=== PATIENT | male | born 1960 | race Caucasian/White ===

== ENCOUNTER 2021-09-06 16:30 | Inpatient (IN) | payer OTHER ==
[~2021-09-06] VITALS: Ht 172.7 cm; Wt 95.4 kg
[~2021-09-06 16:30] MED LIST: AZIT250 PO
[2021-09-06 17:05] LABS: BASOPHILS ABSOLUTE AUTO 0.02 K/mm3 (0.00-0.23); BASOPHILS PERCENT AUTO 0 % (0-2); EOSINOPHILS ABSOLUTE AUTO 0.04 K/mm3 (0.00-0.68); EOSINOPHILS PERCENT AUTO 1 % (0-6); Hematocrit 44.5 % (37.0-53.0); Hemoglobin 14.9 g/dL (13.5-17.5); IMMATURE GRAN ABSOLUTE AUTO 0.03 K/mm3 (0.00-0.10); IMMATURE GRAN PERCENT AUTO 0 % (0-1); LYMPHOCYTES ABSOLUTE AUTO 1.37 K/mm3 (0.84-5.20); LYMPHOCYTES PERCENT AUTO 16 % (21-46); MONOCYTES ABSOLUTE AUTO 0.54 K/mm3 (0.16-1.47); MONOCYTES PERCENT AUTO 6 % (4-13); Mean Corpuscular HGB 30.8 pg (26.0-34.0); Mean Corpuscular HGB Conc 33.5 g/dL (31.5-36.5); Mean Corpuscular Volume 92 fL (80-100); Mean Platelet Volume 9.7 fL (9.1-12.4); NEUTROPHILS ABSOLUTE AUTO 6.59 K/mm3 (1.96-9.15); NEUTROPHILS PERCENT AUTO 77 % (41-73); Platelet Count 164 K/mm3 (150-400); RDW Coefficient Variation 12.6 % (11.7-14.2); RDW Standard Deviation 42.4 fL (35.1-46.3); Red Blood Cell Count 4.83 M/mm3 (4.30-5.90); White Blood Cell Count 8.59 K/mm3 (4.00-11.30)
[2021-09-06 17:18] LABS: Alanine Aminotransfer (ALT/SGP 24 U/L (12-78); Albumin, Blood 3.6 g/dL (3.4-5.0); Albumin/Globulin Ratio 1.2 (0.8-1.8); Alk Phos 53 U/L (50-136); Anion Gap 3 mmol/L (6-16); Aspartate Aminotrans (AST/SGOT 16 U/L (12-37); Blood Urea Nitrogen 15 mg/dL (8-24); Bun/Creatinine Ratio 15.2 (12.0-20.0); CO2, Blood 30 mmol/L (21-32); Calcium, Blood 8.9 mg/dL (8.5-10.1); Chloride, Blood 110 mmol/L (98-108); Creatinine, Blood 0.99 mg/dL (0.60-1.20); Globulin, Blood 2.9 g/dL (2.2-4.0); Glomerular Filtration Rate 88 (60-); Glucose, Blood 124 mg/dL (70-99); Potassium, Blood 4.3 mmol/L (3.5-5.5); Sodium, Blood 143 mmol/L (136-145); Total Protein, Blood 6.5 g/dL (6.4-8.2)
[2021-09-06] MEDS ORDERED: Aspir 8181 MG PO (17:25)
[2021-09-06 21:00] LABS: CHOL/HDL RATIO 5.2; Cholesterol 187 mg/dL (50-200); HDL Cholesterol 36 mg/dL (>39); LDL/HDL RATIO 3.4; Low Density Lipoprotein Chol 121 mg/dL (0-110); Triglycerides 149 mg/dL (30-160); Very Low Density Lipoprot Chol 29 mg/dL (6-32)
--- NOTE | 2021-09-07 05:50 | NUR ---
PT IS A/O, ADMISSION FOR TIA, PT APPEARS TO HAVE NO DEFICITS, EQUAL INDUSTRIAL WASTE TREATMENT TECHNICIAN, EYES ARE UNEVEN WHICH IS FROM PRIOR TRAUMA. PT SAYS THIS IS NORMAL SINCE PRIOR EVENT HAPPENED. PT TO HAVE MRI, SCREENING FORM FAXED.
--- NOTE | 2021-09-07 10:53 | NUR ---
ADVISED DR DIAZ RE THROMBUS PER NET TECHNICAL ARCHITECT . DR RUGGIERO TO READ AND INTERPRET. ALSO, FAMILY READINESS SUPPORT ASSISTANT TRYING TO VERIFY HEART STENTS PRIOR TO MRI. POSS WONT BE UNTIL THURSDAY
[2021-09-07 13:24] LABS: International Normalized Ratio 0.99; Prothrombin Time Results 10.4 Sec (9.7-11.5)
--- NOTE | 2021-09-07 18:57 | NUR ---
PT PLEASANT TODAY. FAMILY DID COME IN TO SEE TODAY. WE ARE STILL PENDING MRI. CLOT IN L VENTRICAL OF HEART DISCOVERED TODAY THROUGH ECHO. PT STARTED ON BOLUS AND HEPARIN DRIP. PRESENTLY INFUSING. WILL VERIFY DRIP AT SHIFT CHANGE. PT STATES FACE/NECK PAIN/TINGLING REDUCED BACK TO NORMAL LEVELS TODAY. NO OTHER CONCNERS THIS TIEM. BED IN LOW POSITION, LUZ L LITE IN REACH, CALLS APPROP
--- NOTE | 2021-09-07 19:24 | NUR ---
[facility] CALLED ME FROM [facility] SOMEONE ASKING FOR INFO ON MED RECORDS FOR MRI INFO ON HIS STENT. [facility] TO GOOGLE [facility] AND SEND A WEB REQUEST FOR INFO.
[2021-09-08 03:18] LABS: International Normalized Ratio 1.04; Prothrombin Time Results 10.9 Sec (9.7-11.5)
--- NOTE | 2021-09-08 04:17 | NUR ---
PATIENT WITH NO NEW COMPLAINS OR CHANGES THIS SHIFT. REMAINS ON HEPARIN AND TITRATED PER PHARMACIST. HEPARIN CURRENTLY AT 20 UNITS/KG/HR WITH NEXT APPT SCHEDULED AT 1030. PATIENT TIA SYMPTOMS RESOLVED AT THIS TIME.
--- NOTE | 2021-09-08 08:00 | NUR ---
PT PLEASANT SOME SYNICAL, SOME BANTERING. A/O X3. TALKATIVE. STATES FEELS BACK TO BASELINE. STATES READY TO GO HOME. HEPARIN DRIPP RUNNING AT 32/HR PER ORDERS. H/R REG, NO MURMUR NOTED. PER TELE NSR AT 96. DENIES C/PN, PRESSURE. ALSO STATES NUMBNESS AND PAIN IS BACK TO NORMAL FOR HIM. CONTINUES ON RT OF NECK TO FACE. LUNGS CLEAR, T/O./ ON R.A. RESP EASY, UNLABORED. BT X4 LAST BM YEST PER PT. VOIDS URINAL. BED IN LOW POSITION, CALL LITE IN REACH. CALLS APPROP
--- NOTE | 2021-09-08 10:47 | NUR ---
STOPPED BY ROOM. STATES STOP HEPARIN. WILL GIVE LOVENOX. RECHECK BP AT NOOON
--- NOTE | 2021-09-08 12:35 | NUR ---
OUTPATIENT MRI ORDERS FAXED TO [facility], [employer]OR BUILDER [employer] NOTIFIED PT TO BE DISCHARGED AND MRI COMPLETED OUTPATIENT.
[2021-09-08] MEDS ORDERED: ATOR40TA PO (12:47)
[2021-09-08] MEDS ORDERED: CARV6.25 PO (12:48)
[2021-09-08] MEDS ORDERED: CLOP75 PO (12:48)
[2021-09-08] MEDS ORDERED: ENOX100I SC (12:48)
[2021-09-08] MEDS ORDERED: LISI5 PO (12:49)
[2021-09-08] MEDS ORDERED: SPIR25 PO (12:49)
[2021-09-08] MEDS ORDERED: Coumadin2 MG PO (12:50)
--- NOTE | 2021-09-08 14:08 | NUR ---
DISCHARGE REVIEWED WITH PT . HE VERBALIZED UNDERSTANDING MEDS AND INST. VERBALIZED UNDERSTANDING NEED FOR INR CHECKS. ALSO KEEPING LOVENOX INJECTIONS PER DR ORDERS. IV PULLED INTACT. TELE REMOVED AND RETURNED. PT WHEELED TO DOOR AT 1408
== END 2021-09-08 14:32 | disposition home or self-care (01) | DRG 69 ==
LOC: ER 16:30 → MEDS 16:31
PROVIDERS: Emergency Medicine; ADMIT Internal Medicine
DX: G45.9 Transient cerebral ischemic attack, unspecified (principal); I50.22 Chronic systolic (congestive) heart failure; I25.10 Atherosclerotic heart disease of native coronary artery without angina pectoris; I25.2 Old myocardial infarction; E11.9 Type 2 diabetes mellitus without complications; Z79.899 Other long term (current) drug therapy; R29.810 Facial weakness; I27.20 Pulmonary hypertension, unspecified
CPT/HCPCS: 36415; 70450; 70496; 70498; 71045; 80053; 80061; 82947; 83036; 85025; 85610; 85730; 92523; 93005; 93010; 93306; 96374; 96376; 97161; 97530; 99285-25; A9270; G0378; J1644; J1650; Q9967

== ENCOUNTER 2022-08-19 09:37 | Day surgery (SDC) | payer OTHER ==
[~2022-08-19] VITALS: Ht 172.7 cm; Wt 93.0 kg
[~2022-08-19 09:37] MED LIST changes: +ATOR40TA PO; +Aspir 8181 MG PO; +CARV6.25 PO; +CLOP75 PO; +Coumadin2 MG PO; +ENOX100I SC; +LISI5 PO; +SPIR25 PO
[2022-08-19] MEDS ORDERED: METO100ER (09:51)
--- NOTE | 2022-08-19 11:01 | NUR ---
08/19/22 1101 LUCIUS MARCANO PT WAS TOLD THAT H NEEDED A RIDE TO LEAVE AFTER HIS PROCEDURE AND HIS RIDE WAS PLANNING TO PICK HIM UP AT [phone] TODAY. HE WANTS TO LEAVE AND WALK TO STORE TO GET FOOD TO EAT. DR NGUYEN DISCUSSED NOT BEING ABLE TO HOLD HIM AGAINST HIS WILL IF HE WANTS TO LEAVE AND IS ABLE TO DRESS AND WALK SAFELY AND FEELS COMPLETELY AWAKE EVEN IF IT IS AGAINST MEDICAL ADVISE.
[2022-08-19 11:58] VITALS: BP 100/68
--- NOTE | 2022-08-19 12:13 | NUR ---
08/19/22 1213 LUCIUS MARCANO PT REFUSED TO WAIT IN STEP DOWN UNIT TO WAIT FOR HIS RIDE. RN EXPLAINED THE RISKS OF LEAVING AFTER HAVING PROPOFOL SEDATION. PT TOLD THAT IT WAS ILLEGAL TO DRIVE HIMSELF FOR 24. PT DISCUSSED W/ DR NGUYEN WHO TOLD PT WE COULD NOT KEEP PT AGAINST MEDICAL ADVISE. PT SAID HE WS WALKING TO STORE TO WAIT FOR HIS RIDE TO PICK HIM UP AFTE HE GOT OFF WORK. PT SIGNED AMA FORM.
== END 2022-08-19 11:45 | disposition home or self-care (01) ==
LOC: ORSCSDS 09:37
PROVIDERS: Surgery
PROC: 0DJD8ZZ Inspection of Lower Intestinal Tract, Via Natural or Artificial Opening Endoscopic (ICD-10-PCS; principal; 2022-08-19 10:45)
DX: K62.5 Hemorrhage of anus and rectum (principal); Z86.010 Personal history of colon polyps; K64.4 Residual hemorrhoidal skin tags; Z86.73 Personal history of transient ischemic attack (TIA), and cerebral infarction without residual deficits; I25.10 Atherosclerotic heart disease of native coronary artery without angina pectoris; I50.9 Heart failure, unspecified; Z86.718 Personal history of other venous thrombosis and embolism; I21.9 Acute myocardial infarction, unspecified; Z79.01 Long term (current) use of anticoagulants; Z79.899 Other long term (current) drug therapy
CPT/HCPCS: J2704; J7120

== ENCOUNTER 2023-09-09 15:09 | Observation (INO) | payer OTHER ==
[~2023-09-09] VITALS: Ht 170.2 cm; Wt 90.0 kg
[~2023-09-09 15:09] MED LIST changes: +METO100ER
[2023-09-09] MEDS ORDERED: Ondansetron HCl 2 MG / ML 2ML Vial IV ONE (15:25)
[2023-09-09] MEDS ORDERED: Morphine Sulfate 4 MG/1 ML Injection IV ONE (15:25)
[2023-09-09 15:40] LABS: BASOPHILS ABSOLUTE AUTO 0.03 K/mm3 (0.00-0.23); BASOPHILS PERCENT AUTO 0 % (0-2); EOSINOPHILS ABSOLUTE AUTO 0.04 K/mm3 (0.00-0.68); EOSINOPHILS PERCENT AUTO 0 % (0-6); Hematocrit 49.3 % (37.0-53.0); Hemoglobin 16.6 g/dL (13.5-17.5); IMMATURE GRAN ABSOLUTE AUTO 0.03 K/mm3 (0.00-0.10); IMMATURE GRAN PERCENT AUTO 0 % (0-1); LYMPHOCYTES ABSOLUTE AUTO 2.59 K/mm3 (0.84-5.20); LYMPHOCYTES PERCENT AUTO 22 % (21-46); MONOCYTES ABSOLUTE AUTO 0.91 K/mm3 (0.16-1.47); MONOCYTES PERCENT AUTO 8 % (4-13); Mean Corpuscular HGB 31.4 pg (26.0-34.0); Mean Corpuscular HGB Conc 33.7 g/dL (31.5-36.5); Mean Corpuscular Volume 93 fL (80-100); Mean Platelet Volume 9.7 fL (9.1-12.4); NEUTROPHILS ABSOLUTE AUTO 8.02 K/mm3 (1.96-9.15); NEUTROPHILS PERCENT AUTO 69 % (41-73); Platelet Count 183 K/mm3 (150-400); RDW Coefficient Variation 12.4 % (11.7-14.2); RDW Standard Deviation 42.8 fL (35.1-46.3); Red Blood Cell Count 5.29 M/mm3 (4.30-5.90); White Blood Cell Count 11.62 K/mm3 (4.00-11.30)
[2023-09-09 16:12] LABS: Albumin, Blood 4.1 g/dL (3.4-5.0); Albumin/Globulin Ratio 1.3 (0.8-1.8); Bilirubin, Total 1.2 mg/dL (0.1-1.0); Bun/Creatinine Ratio 13.1 (12.0-20.0); Calcium, Blood 9.4 mg/dL (8.5-10.1); Creatinine, Blood 1.07 mg/dL (0.60-1.20); Globulin, Blood 3.2 g/dL (2.2-4.0); Total Protein, Blood 7.3 g/dL (6.4-8.2)
[2023-09-09 17:54] LABS: International Normalized Ratio 1.94; Prothrombin Time Results 19.8 Sec (9.7-11.5)
[2023-09-09] MEDS ORDERED: Morphine Sulfate 4 MG/1 ML Injection IV PRN (19:55)
[2023-09-09] MEDS ORDERED: Acetaminophen 325 MG TABLET PO PRN (19:55)
[2023-09-09] MEDS ORDERED: Ondansetron HCl 2 MG / ML 2ML Vial IV PRN (20:00)
[2023-09-09 20:28] LABS: Anti-Xa UFH, PHA Monitoring <0.10 IU/mL
[2023-09-09] MEDS ORDERED: Dose Adjust by Pharmacy XX STA (20:49)
[2023-09-09] MEDS ORDERED: Heparin Sodium,Porcine/0.5 NS 500 ML IV SCH (20:50)
[2023-09-09] MEDS ORDERED: METO25 PO (20:54)
[2023-09-09] MEDS ORDERED: ENTRESTO 24 MG1 EACH PO (20:56)
[2023-09-09] MEDS ORDERED: FARXIGA10 MG PO (20:57)
[2023-09-09] MEDS ORDERED: Nitroglycerin 1 INCH/GM PKT TOP ONE (21:00)
[2023-09-09 21:16] VITALS: BP 110/76
[2023-09-09 23:08] VITALS: BP 95/61
[2023-09-10 03:13] VITALS: BP 97/61
[2023-09-10 03:43] LABS: Hematocrit 42.7 % (37.0-53.0); Hemoglobin 14.4 g/dL (13.5-17.5); Mean Corpuscular HGB 32.1 pg (26.0-34.0); Mean Corpuscular HGB Conc 33.7 g/dL (31.5-36.5); Mean Corpuscular Volume 95 fL (80-100); Mean Platelet Volume 10.1 fL (9.1-12.4); Platelet Count 153 K/mm3 (150-400); RDW Coefficient Variation 12.6 % (11.7-14.2); RDW Standard Deviation 43.8 fL (35.1-46.3); Red Blood Cell Count 4.48 M/mm3 (4.30-5.90); White Blood Cell Count 8.48 K/mm3 (4.00-11.30)
[2023-09-10 03:58] LABS: Anti-Xa UFH, PHA Monitoring 0.47 IU/mL; International Normalized Ratio 1.67; Prothrombin Time Results 17.2 Sec (9.7-11.5)
[2023-09-10 03:59] LABS: Bun/Creatinine Ratio 15.7 (12.0-20.0); Calcium, Blood 8.3 mg/dL (8.5-10.1); Creatinine, Blood 0.89 mg/dL (0.60-1.20); Potassium, Blood 3.9 mmol/L (3.5-5.5)
[2023-09-10] MEDS ORDERED: Dose Adjust by Pharmacy XX STA ×2 (04:56→10:23)
[2023-09-10] MEDS ORDERED: NS 1,000 ML IV SCH (05:00)
--- NOTE | 2023-09-10 06:34 | NUR ---
SHIFT SUMMARY PATIENT ALERT AND ORIENTED x4 T/O THE NIGHT. ELEVATED TROP, TRENDING UP. DENIES CHEST PAIN/PRESSURE AT THIS TIME. SOME LOW BP, BUT MAP > 65. HEPARIN GTT INFUSING PER PHARMACY DOSING. PATIENT HAS BEEN NPO SINCE [place]. ON RA SPO2 > 90%. NO ACUTE EVENTS SINCE ARRIVAL TO PCU THIS SHIFT.
[2023-09-10] MEDS ORDERED: Heparin Sodium 1000 Units/ML 10ML MDV ONE ×2 (07:40→07:41)
[2023-09-10] MEDS ORDERED: NS 1,000 ML IV ONE ×2 (07:40→10:49)
[2023-09-10] MEDS ORDERED: Verapamil HCL 2.5 MG/ML 2ML Injection ONE (07:40)
[2023-09-10] MEDS ORDERED: NS 250 ML IV ONE (07:41)
[2023-09-10] MEDS ORDERED: Nitroglycerin 2 MG/20 ML BTL ONE (07:51)
[2023-09-10] MEDS ORDERED: Carvedilol 6.25 MG Tab PO SCH (08:00)
[2023-09-10 08:12] VITALS: BP 96/66
[2023-09-10 08:35] LABS: CHOL/HDL RATIO 2.4; Cholesterol 105 mg/dL (50-200); HDL Cholesterol 43 mg/dL (>39); Low Density Lipoprotein Chol 44 mg/dL (0-110); Triglycerides 88 mg/dL (30-160); Very Low Density Lipoprot Chol 17 mg/dL (6-32)
[2023-09-10] MEDS ORDERED: Aspirin 81 MG Chew PO SCH (09:00)
[2023-09-10] MEDS ORDERED: Clopidogrel Bisulfate 75 MG Tab PO SCH (09:00)
[2023-09-10] MEDS ORDERED: Atorvastatin 40 MG Tab PO SCH (09:00)
[2023-09-10] MEDS ORDERED: Midazolam HCl 1MG / ML 2ML Vial ONE (10:48)
[2023-09-10] MEDS ORDERED: FentaNYL Citrate 50 MCG/ML 2 ML Injection ONE (10:48)
[2023-09-10 12:15] VITALS: BP 92/66
[2023-09-10 12:30] VITALS: BP 108/78
[2023-09-10 12:45] VITALS: BP 109/80
--- NOTE | 2023-09-10 12:52 | NUR ---
REASSESSMENT PT WENT FOR HIS ANGIO THIS AM AND IS BACK WITH A TR BAND ON R ULNAR SITE. UPON RETURN FROM SOFTWARE FIRMWARE ENGINEER, R HAND WAS PURPLE, COOL TO TOUCH WITH CAP REFILL >3 SECONDS. 2CC REMOVED FROM TR BAND AND R HAND IS NOW PINKER AND CAP REFILL <3 SECONDS. ACCESS SITE IS C/D/I, SOFT. PT DENIES CHEST PAIN. LUNGS CLEAR, RA. DIET ORDERED AND PT EATING LUNCH.
[2023-09-10] MEDS ORDERED: Enoxaparin 150 MG/ML 1ML SYR SC SCH (16:00)
[2023-09-10] MEDS ORDERED: Warfarin Sodium 5 MG Tab PO ONE (16:08)
[2023-09-10] MEDS ORDERED: ASPI81CH PO (16:43)
[2023-09-10] MEDS ORDERED: METO25ER PO (16:44)
[2023-09-10] MEDS ORDERED: ENOX100I SC (16:45)
--- NOTE | 2023-09-10 17:26 | NUR ---
DISCHARGE PT'S TR BAND DEFLATED WITHOUT COMPLICATIONS. PT GIVEN INSTRUCTIONS ON ACTIVITY INSTRUCTIONS AND ADVISED TO CONTINUE WEARING THE ARM BOARD A REMINDER TO NOT USE THAT WRIST. DR. SQUIRES ROUNDED ON PT AND DECIDED TO DISCHARGE PT. PT WAS IRRITATED AFTER THE CONVERSATION THAT HIS COUMADIN WASN'T STARTED YESTERDAY SO HE WOULDN'T HAVE TO TAKE LOVENOX SHOTS. EDUCATED GIVEN ON WHY COUMADIN WASN'T STARTED LAST NIGHT AND THAT HE LIKELY WOULD'VE STILL NEEDED LOVENOX SHOTS. PT GIVEN EDUCATION ON HOW TO GIVE LOVENOX SHOTS AND THAT HE WILL LIKELY NEED TO PURGE SOME MEDICINE OUT OF THE [facility] TO GET THE CORRECT DOSE. PT GIVEN FIRST DOSE OF LOVENOX AND COUMADIN. PT GIVEN INSTRUCTIONS NOT TO TAKE COUMADIN TOMORROW UNTIL HE HEARS FROM COUMADIN CLINIC PER FANNY PACE. PT GIVEN DISCHARGE INSTRUCTIONS ABOUT FOLLOW UP APPOINTMENTS. PT DRESSED SELF AND ONCE AGAIN ASKED IF HE HAD TO WEAR THE ARM BOARD. ACTIVITY LIMITATIONS FOR WRIST REVIEWED AND STRONGLY ADVISED WEARING THE ARMBOARD A REMINDER TO NOT USE IT, BUT PT DECIDED NOT TO WEAR IT. PT DISCHARGED VIA PRIVATE VEHICLE WITH HIS BROTHER.
== END 2023-09-10 17:30 | disposition home or self-care (01) ==
LOC: ER 15:09 → PCU 15:10 → ER 19:53 → PCU 20:36
PROVIDERS: Emergency Medicine; Nurse Practitioner Acute Care; Student in an Organized Health Care Education/Training Program; ADMIT Student in an Organized Health Care Education/Training Program
DX: I21.4 Non-ST elevation (NSTEMI) myocardial infarction (principal); I24.9 Acute ischemic heart disease, unspecified; I25.5 Ischemic cardiomyopathy; I25.10 Atherosclerotic heart disease of native coronary artery without angina pectoris; Z95.5 Presence of coronary angioplasty implant and graft; I50.20 Unspecified systolic (congestive) heart failure; Z86.73 Personal history of transient ischemic attack (TIA), and cerebral infarction without residual deficits; Z79.01 Long term (current) use of anticoagulants; Z79.899 Other long term (current) drug therapy
CPT/HCPCS: 36415; 71046; 71260; 76937; 80048; 80053; 80061; 83036; 84443; 84484; 85025; 85027; 85520; 85610; 85730; 93005; 93010; 93454; 96372; 96374; 96375; 99152; 99153; 99285-25; A9270; C1769; C1894; C8929; G0378; J1644; J1650; J2250; J2270; J2405; J3010; J7030; J7050; Q9957; Q9967

== ENCOUNTER 2024-05-21 14:56 | Inpatient (IN) | payer OTHER ==
[~2024-05-21] VITALS: Ht 177.8 cm; Wt 87.1 kg
[~2024-05-21 14:56] MED LIST changes: +ASPI81CH PO; +ENTRESTO 24 MG1 EACH PO; +FARXIGA10 MG PO; +METO25 PO; +METO25ER PO
[2024-05-21 15:14] LABS: BASOPHILS ABSOLUTE AUTO 0.04 K/mm3 (0.00-0.23); BASOPHILS PERCENT AUTO 0 % (0-2); EOSINOPHILS ABSOLUTE AUTO 0.08 K/mm3 (0.00-0.68); EOSINOPHILS PERCENT AUTO 1 % (0-6); Hemoglobin 17.3 g/dL (13.5-17.5); IMMATURE GRAN ABSOLUTE AUTO 0.04 K/mm3 (0.00-0.10); IMMATURE GRAN PERCENT AUTO 0 % (0-1); LYMPHOCYTES ABSOLUTE AUTO 3.35 K/mm3 (0.84-5.20); LYMPHOCYTES PERCENT AUTO 32 % (21-46); MONOCYTES ABSOLUTE AUTO 0.89 K/mm3 (0.16-1.47); MONOCYTES PERCENT AUTO 8 % (4-13); Mean Corpuscular HGB 31.9 pg (26.0-34.0); Mean Corpuscular HGB Conc 34.6 g/dL (31.5-36.5); Mean Corpuscular Volume 92 fL (80-100); Mean Platelet Volume 9.5 fL (9.1-12.4); NEUTROPHILS ABSOLUTE AUTO 6.14 K/mm3 (1.96-9.15); NEUTROPHILS PERCENT AUTO 58 % (41-73); Platelet Count 201 K/mm3 (150-400); RDW Coefficient Variation 12.5 % (11.7-14.2); RDW Standard Deviation 42.2 fL (35.1-46.3); Red Blood Cell Count 5.42 M/mm3 (4.30-5.90); White Blood Cell Count 10.54 K/mm3 (4.00-11.30)
[2024-05-21] MEDS ORDERED: Morphine Sulfate 4 MG/1 ML Injection ONE (15:18)
[2024-05-21] MEDS ORDERED: Ondansetron HCl 2 MG / ML 2ML Vial ONE (15:18)
[2024-05-21 15:19] LABS: Calcium, Ionized (POC) 0.91 mmol/L (1.10-1.46); Chloride (POC) 108 mmol/L (98-108); Creatinine (POC) 1.1 mg/dL (0.8-1.3); Glucose (ISTAT POC) 135 mg/dL (70-99); Potassium (POC) 5.5 mmol/L (3.5-5.5); Sodium (POC) 136 mmol/L (135-148); Total CO2 (POC) 21 mmol/L (21-32)
[2024-05-21] MEDS ORDERED: Morphine Sulfate 4 MG/1 ML Injection IV ONE (15:20)
[2024-05-21] MEDS ORDERED: Ondansetron HCl 2 MG / ML 2ML Vial IV ONE (15:20)
[2024-05-21] MEDS ORDERED: Nitroglycerin 1 INCH/GM PKT TOP ONE (15:20)
[2024-05-21] MEDS ORDERED: Aspirin 81 MG Chew PO ONE (15:20)
[2024-05-21] MEDS ORDERED: NS 1,000 ML IV ONE ×2 (15:24→15:26)
[2024-05-21] MEDS ORDERED: NS 0 ML IV ONE (15:26)
[2024-05-21] MEDS ORDERED: Heparin Sodium 1000 Units/ML 10ML MDV ONE (15:26)
[2024-05-21] MEDS ORDERED: Verapamil HCL 2.5 MG/ML 2ML Injection ONE (15:26)
[2024-05-21] MEDS ORDERED: Isosorbide Mono30 MG PO (15:29)
[2024-05-21 15:35] LABS: Albumin, Blood 4.3 g/dL (3.4-5.0); Albumin/Globulin Ratio 1.4 (0.8-1.8); Bilirubin, Total 1.6 mg/dL (0.1-1.0); Bun/Creatinine Ratio 16.3 (12.0-20.0); Calcium, Blood 9.3 mg/dL (8.5-10.1); Creatinine, Blood 1.04 mg/dL (0.60-1.20); Potassium, Blood 3.9 mmol/L (3.5-5.5); Total Protein, Blood 7.3 g/dL (6.4-8.2)
[2024-05-21 15:48] LABS: International Normalized Ratio 2.41; Prothrombin Time Results 24.2 Sec (9.7-11.5)
[2024-05-21] MEDS ORDERED: HYDROmorphone HCl/Pf 1MG SYR IV ONE ×2 (15:50→16:00)
[2024-05-21 16:24] LABS: Base Excess Venous -1.6 mmol/L; Bicarbonate Venous 22.1 mmol/L (24.0-30.0)
[2024-05-21 16:25] LABS: PCO2 Venous 42.1 mmHg (38-42); pH Blood Venous 7.36 (7.34-7.37)
[2024-05-21] MEDS ORDERED: LORazepam 2 MG/ML 1ML Injection IV ONE (16:35)
[2024-05-21] MEDS ORDERED: Morphine Sulfate 4 MG/1 ML Injection IV PRN (18:05)
[2024-05-21] MEDS ORDERED: Nitroglycerin 0.4 MG SUBL SL PRN (18:05)
[2024-05-21] MEDS ORDERED: Magnesium Hydroxide Conc 10 ML UDC PO PRN (18:05)
[2024-05-21] MEDS ORDERED: FLU VACC TS2024-25(6MOS UP)/PF 45 MCG/0.5 ML SYRINGE IM ONE (20:00)
[2024-05-21] MEDS ORDERED: Sacubitril/Valsartan 24 MG-26 MG Tab PO SCH (21:00)
--- NOTE | 2024-05-21 21:51 | NUR ---
MD NOTIFED PT HAD 8 BEAT RUN OF V-TACH, PT ASYMTOMATIC. NOTIFED
--- NOTE | 2024-05-21 22:19 | NUR ---
ASSUMPTION OF CARE REPORT RECIVED FROM ER NURSE URIEL @ 6289, PT ARRIVED TO PCU 13 @ APPROX 2205, PT SELF TRANSFERED TO PCU BED, VSS, PT HOLDING APPROPRATE CONVERSATION, OBEYS COMMANDS, PT REPORTING CHEST PAIN THAT IS IMPROVED SINCE ADMISSION.
[2024-05-21 23:32] VITALS: BP 122/76
[2024-05-22] VITALS (10 sets, daily range): BP systolic 95–104; BP diastolic 65–78
--- NOTE | 2024-05-22 00:26 | NUR ---
NOTIFED DR. HUDSON NOTIF[place] [id number] [place] 363 @ 1217 [address] WHITAKER [place]IF[place] [id number] [place] 363 @ ARRPOX 1220, STATED HE WILL BE AT BEDSIDE IN APPROX 10-15 MINTUES. NO NEW ORDERS AT THIS TIME
--- NOTE | 2024-05-22 01:01 | NUR ---
TO BEDSIDE CAME TO BEDSIDE
[2024-05-22] MEDS ORDERED: Clopidogrel Bisulfate 300 MG Cap PO ONE (01:05)
--- NOTE | 2024-05-22 01:48 | NUR ---
MD MCKEONIFECaren CALLED DR. SCALES WITH 13S RUN OF V-TACH, PT VSS, PT ALERT AND ANSWERING QUESTIONS APPROPRIATLY AT THIS TIME. CHEST PAIN REMAINS THE SAME PRIOR ASSESSEMENT
[2024-05-22 02:07] LABS: International Normalized Ratio 2.09
[2024-05-22 02:12] LABS: Prothrombin Time Results 21.2 Sec (9.7-11.5)
[2024-05-22] MEDS ORDERED: Dose Adjust by Pharmacy XX STA ×2 (02:50→10:07)
[2024-05-22] MEDS ORDERED: Heparin Sodium,Porcine/0.5 NS 500 ML IV SCH (02:55)
[2024-05-22 03:29] LABS: Anti-Xa UFH, PHA Monitoring <0.10 IU/mL
--- NOTE | 2024-05-22 05:03 | NUR ---
CONSULTED WITH DR. HUDSON PER DR. WHITAKER REQUEST, PLAN OF CARE ONGOING, NO NEW ORDERS AT THIS TIME.
[2024-05-22 05:49] LABS: LDL/HDL RATIO 1.1
[2024-05-22 05:50] LABS: Alanine Aminotransfer (ALT/SGP 62 U/L (12-78); Albumin, Blood 3.7 g/dL (3.4-5.0); Albumin/Globulin Ratio 1.3 (0.8-1.8); Alk Phos 59 U/L (50-136); Anion Gap 10 mmol/L (3-11); Aspartate Aminotrans (AST/SGOT 283 U/L (12-37); Bilirubin, Total 1.3 mg/dL (0.1-1.0); Blood Urea Nitrogen 14 mg/dL (8-24); Bun/Creatinine Ratio 19.3 (12.0-20.0); CHOL/HDL RATIO 2.4; CO2, Blood 24 mmol/L (21-32); Calcium, Blood 8.9 mg/dL (8.5-10.1); Chloride, Blood 109 mmol/L (98-108); Cholesterol 123 mg/dL (50-200); Creatinine, Blood 0.73 mg/dL (0.60-1.20); Globulin, Blood 2.9 g/dL (2.2-4.0); Glomerular Filtration Rate 103 (60-); Glucose, Blood 117 mg/dL (70-99); HDL Cholesterol 52 mg/dL (>39); Low Density Lipoprotein Chol 59 mg/dL (0-110); Potassium, Blood 4.2 mmol/L (3.5-5.5); Sodium, Blood 139 mmol/L (136-145); Total Protein, Blood 6.6 g/dL (6.4-8.2); Triglycerides 60 mg/dL (30-160); Very Low Density Lipoprot Chol 12 mg/dL (6-32)
--- NOTE | 2024-05-22 06:13 | NUR ---
SHIFT SUMMARY PT A&O X4, OBEYS COMMANDS, MOVING ALL EXTREMITIES WITH PURPOSE, HOLDING APPROPRIATE CONVERSATION, PT IND IN ROOM EDUCATED TO CALL BEFORE AMBULATING. CONTINUOUS SPO2. SPO2 GREATER THAN 90% ON RA, PT DENIES FEELINGS OF SOB, NO SIGNS OF RESPIRATORY DISTRESS NOTED. CONTINUOUS TELE MONITORING, SINUS RHYTM 80-90 S/ RUNS OF ASYMPTOMATIC V-TACH (MD AWARE), BP STABLE WITH MAP GREATER THAN 65, PT REPORTS CHEST PAIN T/O THIS SHIFT BUT DENIES IT FEELING ANY WORSE OR DIFFERENT THAN WHEN HE WAS ADMITTED, STRONG PULSES T/O. BOWEL TONES PRESENT IN ALL 4Q, PT DENIES FEELINGS OF CONSTIPATION, DENIES FEELINGS OF NAUSEA, PT NPO SINCE MIDNIGHT FOR PROCEDURE TODAY 05/22/2024. PT VOIDING IN BRP, URINE YELLOW IN COLOR. BED LOWEST POSITION, CALL LIGHT IN REACH, AWAITING TO GIVE REPORT TO ONCOMING RN.
[2024-05-22] MEDS ORDERED: Aspirin 325 MG Tab PO SCH (09:00)
[2024-05-22] MEDS ORDERED: Atorvastatin 40 MG Tab PO SCH (09:00)
[2024-05-22] MEDS ORDERED: Isosorbide Mononitrate 30 MG TABCR PO SCH (09:00)
[2024-05-22] MEDS ORDERED: Metoprolol Succinate 25 MG TABCR PO SCH (09:00)
[2024-05-22] MEDS ORDERED: Spironolactone 25 MG Tab PO SCH (09:00)
[2024-05-22] MEDS ORDERED: Empagliflozin 25 MG TAB PO SCH (09:00)
[2024-05-22] MEDS ORDERED: Aspirin 81 MG TabEC PO SCH (09:00)
[2024-05-22 09:18] LABS: BASOPHILS ABSOLUTE AUTO 0.01 K/mm3 (0.00-0.23); BASOPHILS PERCENT AUTO 0 % (0-2); EOSINOPHILS PERCENT AUTO 0 % (0-6); Hematocrit 48.9 % (37.0-53.0); Hemoglobin 16.7 g/dL (13.5-17.5); IMMATURE GRAN ABSOLUTE AUTO 0.05 K/mm3 (0.00-0.10); IMMATURE GRAN PERCENT AUTO 0 % (0-1); LYMPHOCYTES ABSOLUTE AUTO 1.29 K/mm3 (0.84-5.20); LYMPHOCYTES PERCENT AUTO 9 % (21-46); MONOCYTES ABSOLUTE AUTO 1.23 K/mm3 (0.16-1.47); MONOCYTES PERCENT AUTO 8 % (4-13); Mean Corpuscular HGB 31.6 pg (26.0-34.0); Mean Corpuscular HGB Conc 34.2 g/dL (31.5-36.5); Mean Corpuscular Volume 92 fL (80-100); Mean Platelet Volume 9.7 fL (9.1-12.4); NEUTROPHILS ABSOLUTE AUTO 12.11 K/mm3 (1.96-9.15); NEUTROPHILS PERCENT AUTO 82 % (41-73); Platelet Count 164 K/mm3 (150-400); RDW Coefficient Variation 12.7 % (11.7-14.2); Red Blood Cell Count 5.29 M/mm3 (4.30-5.90); White Blood Cell Count 14.69 K/mm3 (4.00-11.30)
[2024-05-22] MEDS ORDERED: Clarify Drug Order XX ONE (15:30)
[2024-05-22] MEDS ORDERED: Warfarin Sodium 4 MG Tab PO ONE (16:00)
--- NOTE | 2024-05-22 18:38 | NUR ---
SHIFT SUMMARY PATIENT AOX4 CALM AND COOPERATIVE. COMPLAINS OF STABBING CHEST PAIN THAT HAS IMPROVED SINCE ADMISSION AND IS NOW A 5/10. HE IS ON HEPARIN GTT. CARDIOLOGY ORDERED THE PATIENT BLOOD LETTING DUE TO ELEVATED HEMOGLOBIN. THE PATIENT AMBULATORY IDEPENDENT IN ROOM. ABLE TO MOVE ALL EXTREMETIES. 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 PATIENT ON THE HEART MONITOR RUNNING SINUS RHYTHM WITH EPISODES OF SINUS TACHYCARDIA. HIS BLOOD PRESSURE SYSTOLIC IS IN THE 90'S WITH HIS MAP GREATER THAN 65. THE CONINUOUS PULSE OX IS GREATER THAN 90 ON ROOM AIR WITH NO SOB. LUNGS ARE CLEAR AND BOWEL SOUNDS ARE PRESENT. HE IS ON A CARDIAC DIET TOLERATING HIS FOOD.
--- NOTE | 2024-05-22 20:42 | NUR ---
ASSUMPTION OF CARE ASSUMED CARE OF PATIENT AT 1900. BEDSIDE SHIFT REPORT RECEIVED FROM TOÑA RN. PT RESTING IN BED, ALERT AND ORIENTED X4. PT ANSWERS QUESTIONS, FOLLOWS DIRECITON WHEN PROMPTED AND IS ABLE TO MAKE HIS NEEDS KNOWN. PT MOVES EXTREMITIES EQUALLY BILATERALLY, AMBULATES IN THE ROOM INDEPENDENTLY. HR 100-110'S SINUS, SBP 90S. PT STATES THAT HE CHRONICALLY HAS 4/10 PAIN UNCHANGED FROM HIS BASELINE. ENTRESTO HELD PER DR. CARR THIS EVENING. PT ON RA, OXYGEN SATURATION >95%. ABDOMEN SOFT, BOWEL TONES ACTIVE THROUGHOUT. PT AMBULATES IN THE ROOM INDEPENDENTLY. POWERGLIDE IN PLACE TO CAROL INFUSING HEPARIN AT 15UNITS/KG/HR. BED IN LOWEST POSITION, CALL LIGHT WITHIN REACH, CARE CONTINUES.
[2024-05-23 03:21] VITALS: BP 100/70
[2024-05-23 03:36] LABS: Hematocrit 44.1 % (37.0-53.0); Hemoglobin 15.1 g/dL (13.5-17.5); Mean Corpuscular HGB 31.8 pg (26.0-34.0); Mean Corpuscular HGB Conc 34.2 g/dL (31.5-36.5); Mean Corpuscular Volume 93 fL (80-100); Mean Platelet Volume 9.2 fL (9.1-12.4); Platelet Count 140 K/mm3 (150-400); RDW Coefficient Variation 12.4 % (11.7-14.2); RDW Standard Deviation 42.7 fL (35.1-46.3); Red Blood Cell Count 4.75 M/mm3 (4.30-5.90)
[2024-05-23 03:50] LABS: Anti-Xa UFH, PHA Monitoring 0.59 IU/mL; Calcium, Blood 8.2 mg/dL (8.5-10.1); Creatinine, Blood 0.81 mg/dL (0.60-1.20); International Normalized Ratio 1.84; Potassium, Blood 4.2 mmol/L (3.5-5.5); Prothrombin Time Results 18.8 Sec (9.7-11.5)
--- NOTE | 2024-05-23 04:54 | NUR ---
SHIFT SUMMARY NO ACUTE CHANGES THIS SHIFT. PT CONTINUES TO REST IN BED, SLEEPING BUT AROUSABLE. PT ANSWERS QUESTIONS APPROPRIATELY, FOLLOWS DIRECTION WHEN PROMPTED AND IS ABLE TO MAKE HIS NEEDS KNOWN. PT MOVES EXTREMITIES EQUALLY BILATERALLY. HR 100-110S SINUS, MAP >65, PT CONTINUES TO HAVE BASELINE 4/10 PAIN THAT IS UNCHANGED FROM HIS NORMAL. PT ON RA, OXYGEN SATURATION >92% ON SPOT CHECK, ABDOMEN SOFT, BOWEL TONES ACTIVE THROUGHOUT. PT AMBULATES IN THE ROOM INDEPENDENTLY. POWERGLIDE IN PLACE TO CAROL INFUSING HEPARIN AT 15UNITS/KG/HR. BED IN LOWEST POSITON, CALL LIGHT WITHIN REACH, CARE CONTINUES.
--- NOTE | 2024-05-23 04:58 | NUR ---
PT UPDATE ORDER TO DC HEPARIN 24 HOURS AFTER INITIATION WHICH WOULD HAVE JANET AROUND 0300. COAG LABS DRAWN THIS AM, PER PHARMACIST, PT INR IS BELOW THERAPEUTIC RANGE. CALL PLACED TO DR. HUDSON REGARDING THIS INFORMATION. ORDER RECEIVED TO CONTINUE HEPARIN DRIP UNTIL INR IS ABOVE 2, PHARMACIST AWARE, ORDER PLACED TO RECHECK INR AT 1500. CARE CONTINUES.
[2024-05-23] MEDS ORDERED: Clarify Drug Order XX ONE (07:25)
--- NOTE | 2024-05-23 07:49 | NUR ---
THIS RN ASSUMED CARE OF PT AT 0700. PT IS ALERT AND ORIENTED X4, CALLS APPROPRIATELY. PT HEART RATE IN THE 100s, BLOOD PRESSURE LOWER 86/66 MAP IS 74, PT DENIES CHEST PAIN UPON ASSESSMENT. PT IS ON ROOM AIR SATTING >92%, PT DENIES SHORTNESS OF BREATHE. PT IS ON HEPARIN AT 15 UNITS/KG/HR, WILL RECHECK WARFARIN LEVEL, IF THERAPEUTIC WILL TURN OFF HEPARIN PER PROVIDER. NO OTHER INTERVENTIONS AT THIS TIME. PLAN OF CARE CONTINUED.
[2024-05-23 08:00] VITALS: BP 88/58
[2024-05-23 12:00] VITALS: BP 85/55
[2024-05-23 15:49] LABS: International Normalized Ratio 1.77; Prothrombin Time Results 18.2 Sec (9.7-11.5)
[2024-05-23 16:00] VITALS: BP 89/63
--- NOTE | 2024-05-23 16:48 | NUR ---
PT IS LEAVING AMA, PT EDUCATED ON RISKS OF HAVING CARDIAC ARREST AND HYPOTENSION. WAS NOTIFIED, NO OTHER INTERVENTIONS AT THIS TIME. PT INR 1.77, TROPONIN WAS DRAWN BUT NOT GOTTEN BACK BEFORE PT LEFT.
[2024-05-23] MEDS ORDERED: Warfarin Sodium 5 MG Tab PO SCH (18:00)
== END 2024-05-23 16:41 | disposition home or self-care (01) | DRG 281 ==
LOC: ER 14:56 → ERHOLD 18:06 → PCU 18:06
PROVIDERS: Internal Medicine; Internal Medicine Interventional Cardiology; Physician Assistant; Student in an Organized Health Care Education/Training Program; ADMIT Internal Medicine
DX: I21.4 Non-ST elevation (NSTEMI) myocardial infarction (principal); I25.3 Aneurysm of heart; I50.22 Chronic systolic (congestive) heart failure; I25.10 Atherosclerotic heart disease of native coronary artery without angina pectoris; E78.5 Hyperlipidemia, unspecified; E11.9 Type 2 diabetes mellitus without complications; Z96.669 Presence of unspecified artificial ankle joint; E80.6 Other disorders of bilirubin metabolism; D75.1 Secondary polycythemia; Z86.73 Personal history of transient ischemic attack (TIA), and cerebral infarction without residual deficits; Z95.5 Presence of coronary angioplasty implant and graft; Z79.82 Long term (current) use of aspirin; Z79.899 Other long term (current) drug therapy; Z79.01 Long term (current) use of anticoagulants; Z98.890 Other specified postprocedural states
CPT/HCPCS: 36415; 71045; 71275; 74174; 80047; 80048; 80053; 80061; 82803; 83735; 84484; 85014; 85025; 85027; 85520; 85610; 85730; 93005; 93010; 96374-59; 96375-59; 99285-25; A9270; C1751; C8929; J1171; J1644; J2060; J2270; J2405; J7030; J7050; Q9957; Q9967

== ENCOUNTER 2024-05-25 09:58 | Emergency (ER) | payer OTHER ==
[~2024-05-25] VITALS: Ht 205.7 cm; Wt 88.0 kg
[~2024-05-25 09:58] MED LIST changes: +Isosorbide Mono30 MG PO
[2024-05-25] MEDS ORDERED: Morphine Sulfate 4 MG/1 ML Injection IV ONE (10:40)
[2024-05-25] MEDS ORDERED: Ondansetron HCl 2 MG / ML 2ML Vial IV ONE (10:40)
[2024-05-25 10:45] LABS: BASOPHILS ABSOLUTE AUTO 0.02 K/mm3 (0.00-0.23); BASOPHILS PERCENT AUTO 0 % (0-2); EOSINOPHILS ABSOLUTE AUTO 0.08 K/mm3 (0.00-0.68); EOSINOPHILS PERCENT AUTO 1 % (0-6); Hematocrit 41.5 % (37.0-53.0); Hemoglobin 14.1 g/dL (13.5-17.5); IMMATURE GRAN ABSOLUTE AUTO 0.04 K/mm3 (0.00-0.10); IMMATURE GRAN PERCENT AUTO 1 % (0-1); LYMPHOCYTES ABSOLUTE AUTO 1.32 K/mm3 (0.84-5.20); LYMPHOCYTES PERCENT AUTO 15 % (21-46); MONOCYTES ABSOLUTE AUTO 1.03 K/mm3 (0.16-1.47); MONOCYTES PERCENT AUTO 12 % (4-13); Mean Corpuscular HGB 32.3 pg (26.0-34.0); Mean Corpuscular Volume 95 fL (80-100); Mean Platelet Volume 9.8 fL (9.1-12.4); NEUTROPHILS ABSOLUTE AUTO 6.07 K/mm3 (1.96-9.15); NEUTROPHILS PERCENT AUTO 71 % (41-73); Platelet Count 143 K/mm3 (150-400); RDW Coefficient Variation 12.5 % (11.7-14.2); RDW Standard Deviation 43.5 fL (35.1-46.3); Red Blood Cell Count 4.36 M/mm3 (4.30-5.90); White Blood Cell Count 8.56 K/mm3 (4.00-11.30)
[2024-05-25 11:00] LABS: International Normalized Ratio 2.76; Prothrombin Time Results 27.4 Sec (9.7-11.5)
[2024-05-25 11:03] LABS: Albumin, Blood 3.1 g/dL (3.4-5.0); Bilirubin, Total 0.8 mg/dL (0.1-1.0); Bun/Creatinine Ratio 16.9 (12.0-20.0); Calcium, Blood 8.4 mg/dL (8.5-10.1); Creatinine, Blood 0.83 mg/dL (0.60-1.20); Potassium, Blood 4.3 mmol/L (3.5-5.5); Total Protein, Blood 6.1 g/dL (6.4-8.2)
[2024-05-25 14:00] VITALS: BP 106/78
== END 2024-05-25 14:17 | disposition home or self-care (01) ==
LOC: ER 09:58
PROVIDERS: Emergency Medicine
DX: M54.2 Cervicalgia (principal); R74.8 Abnormal levels of other serum enzymes; Z86.718 Personal history of other venous thrombosis and embolism; I25.2 Old myocardial infarction; E11.9 Type 2 diabetes mellitus without complications; E78.5 Hyperlipidemia, unspecified; Z79.01 Long term (current) use of anticoagulants; Z79.899 Other long term (current) drug therapy
CPT/HCPCS: 70491; 80053; 84484; 85025; 85610; 85730; 93005; 93010; 93971; 99284-25; J2270; J2405; Q9967